=== PATIENT | male | born 1995 | race American Indian/Alaskan Native ===

== ENCOUNTER 2018-01-12 11:32 | Outpatient (CLI) | payer BC ==
--- NOTE | 2018-01-12 12:04 | XRay Report ---
Left shoulder 3 views: History: Bursitis, impingement. Findings: The a.c. joint and the glenohumeral joint appears normal. No fracture dislocation or soft tissue calcification. Impression: Essentially negative left shoulder.
== END 2018-01-12 11:33 | disposition home or self-care (01) ==
LOC: SPVIMAG 11:32
PROVIDERS: ATTEND Orthopaedic Surgery
DX: M75.52 Bursitis of left shoulder (principal); M75.42 Impingement syndrome of left shoulder; M75.82 Other shoulder lesions, left shoulder